=== PATIENT | male | born 1975 | race Caucasian/White ===

== ENCOUNTER 2025-04-18 16:36 | Emergency (ER) | payer BC ==
[~2025-04-18] VITALS: Ht 190.5 cm; Wt 111.4 kg
[2025-04-18 16:48] VITALS: TEMP 98
--- NOTE | 2025-04-18 16:53 | ELECTROCARDIOGRAPH REPORT ---
[facility] Test Date: 2025-04-18 Test Time: 16:39:34 Pat Name: CHERI ATWOOD Department: EMERGENCY ROOM Patient ID: [id number] Room: Gender: M Director Of Corporate Responsibility: : 1975 Requested By: MATHEUS OLIVEIRA Order Number: [id number] Reading MD: Dr. Jose Manuel Scales Measurements Intervals [place] Rate: 67 P: 69 OR: 208 QRS: -53 QRSD: 108 T: 67 QT: 379 QTc: 400 Interpretive Statements Sinus rhythm Borderline prolonged OR interval Consider left atrial enlargement Incomplete RBBB and LAFB RSR' in V1 or V2, right VCD or RVH ST elevation, consider inferior injury Electronically Signed On 04-18-2025 21:39:[address] Jose Manuel Scales Please click the below link to view image of tracing.
[2025-04-18 17:03] LABS: MEAN PLATELET VOLUME 7.9 FL (7.4-10.4); RED CELL DISTRIBUTION WIDTH 13.5 % (11.5-14.5)
--- NOTE | 2025-04-18 17:09 | RADIOLOGY REPORT ---
CHEST RADIOGRAPH Indication: CP Technique: DI CHEST,SINGLE VIEW Comparison: None FINDINGS: The cardiac silhouette is unremarkable. The lungs demonstrate right basilar airspace opacification. The pulmonary vasculature is unremarkable. There is no pleural effusion. There is no pneumothorax. IMPRESSION: Right basilar airspace opacification
--- NOTE | 2025-04-18 17:10 | Physician Documentation ---
History of Present Illness ~ Chief Complaint: Palpitations Stated Complaint: CHEST PAIN Time Seen by MD: 16:54 HPI This 50-year-old male with a history of chronic palpitations presents today with a worsening symptoms. Patient states he has increased shortness of breath pito es any chest pain currently. He states he has a burning sensation when he has palpitations. He reports removing much of the attributing factors to increased palpitations including low intake of caffeine however he does state that he uses pipe tobacco in the evenings. Guarding his palpitations he states that he has a throughout the day and sometimes in rapid sequence. States he is still gets palpitations while exercising which he is able to do. Additionally patient has sleep apnea and uses a CPAP at night He is not from this area and has not established with a finance manager's at this time. He states that he has not take any medications currently Day of Onset: Apr 18, 2025 Medication Reconciliation Allergies: Coded Allergies: No Known Allergies (Unverified , 04/18/25) Review of Systems All Other Systems at this time: Reviewed and Negative ROS As stated above in the HPI, otherwise all systems are reviewed and negative. Physical Exam Vital Signs: Temperature: 98.0, Source: Temporal, Heart Rate: 64, Respiratory Rate: 16, BP: 106/51, Pulse Oximetry: 97, Weight: 111.360 Oxygen Flow Rate: 0 Physical Exam General: Alert, no apparent distress. HEENT: PERRL, EOMI, no injection, moist mucous membranes. Neck: Full range of motion. Respiratory: Lungs clear, no respiratory distress. Chest: No accessory muscle use. Cardiovascular: Regular rate and rhythm, no murmurs. Gastrointestinal: Soft, nontender, nondistended. Bowels sounds present. Extremities: Normal range of motion, no deformity. Neurologic: Oriented x4. Psychiatric: Normal mood and affect. Skin: Normal color, warm and dry. No edema, no ecchymosis. Progress Results/Orders Results/Orders Completed Orders - BRANDON MARTELL NP Acetaminophen 325mg Tablet (Tylenol Tabl (04/18/25 17:40) Vital Signs 04/18/25 04/18/25 16:48 17:13 Temp 98.0 Pulse 64 Resp 16 B/P (MAP) 106/51 Pulse Ox 97 O2 Flow Rate 0 Laboratory Tests Test 04/18/25 16:41 White Blood Count 8.0 Red Blood Count 4.84 Hemoglobin 15.9 Hematocrit 45.2 Mean Corpuscular Volume 93.4 Mean Corpuscular Hemoglobin 32.8 H Mean Corpuscular Hemoglobin Concent 35.1 Red Cell Distribution Width 13.5 Platelet Count 259 Mean Platelet Volume 7.9 Neutrophils (%) (Auto) 55.8 Lymphocytes (%) (Auto) 34.5 Monocytes (%) (Auto) 7.1 Eosinophils (%) (Auto) 1.6 Basophils (%) (Auto) 1.0 Neutrophils # (Auto) 4.5 Lymphocytes # (Auto) 2.8 Monocytes # (Auto) 0.6 Eosinophils # (Auto) 0.1 Basophils # (Auto) 0.1 CBC Comment Sodium Level 142 Potassium Level 4.3 Chloride Level 106 Carbon Dioxide Level 29.1 Anion Gap 7 L Blood Urea Nitrogen 10 Creatinine 0.90 Estimated GFR/1.73 m2 89 BUN/Creatinine Ratio 11.1 Glucose Level 94 Calcium Level 9.1 Troponin I High Sensitivity 5 Pro-B-Type Natriuretic Peptide < 30 Albumin 4.2 Chemistry Comments Medical Decision Making Findings 50-year-old male does not present with any signs of acute cardiac events. His EKG was reassuring as was his laboratory results. Chest x-ray showed no signs of abnormalities. At this time I am going to discharge him for outpatient evaluation. Suspect he has been nine palpitations combined with exacerbating anxiety Departure Disposition: 01 HOME / SELF CARE / HOMELESS Impression: Primary Impression: Palpitations Additional Impression: Anxiety Discharge Instructions: Palpitations, [id number] Additional Instructions: As I discussed with the you take medication as prescribed. I recommend [facility] with or one of the other local finance manager's I think he would benefit from an evaluation for a potential ablation. If you are able to obtain Holter monitor records that may be beneficial during your initial consultation Referrals: NO PRIMARY CARE PROVIDER (PCP) Prescriptions Clonazepam (Klonopin) 0.5 Mg Tablet 1 TAB PO QDAY PRN PRN for anxiety for 30 Days, #30 TAB 0 Refills Prov: BRANDON MARTELL NP 04/18/25 Hydroxyzine Hcl* (Atarax*) 25 Mg Tablet 1 TAB PO Q12H for anxiety for 30 Days, #60 TAB Prov: BRANDON MARTELL NP 04/18/25 Signature Scribe Signature: g Attestation: Scribed for Brandon Martell Np by Brandon Fernandez NP . 04/18/25 17:50 BRANDON MARTELL NP Apr 18, 2025 17:10
[2025-04-18 17:21] LABS: CREATININE 0.90 MG/DL (0.60-1.10); PRO BRAIN NATRIURETIC PEPTIDE < 30 PG/ML (0-125); TOTAL CARBON DIOXIDE 29.1 MMOL/L (24-32); eCRCL 116 ML/MIN; eGFR 89 ML/MIN
[2025-04-18] MEDS ORDERED: CLON-850 PO (17:49)
[2025-04-18] MEDS ORDERED: HYDR-3686 PO (17:49)
[2025-04-18 18:14] VITALS: BP 122/76; PULSE 54; RESP 18; O2SAT 98
== END 2025-04-18 18:24 | disposition home or self-care (01) ==
LOC: ER 16:37
DX: R00.2 Palpitations (principal); F41.9 Anxiety disorder, unspecified; G47.30 Sleep apnea, unspecified; Z72.0 Tobacco use
CPT/HCPCS: 36415; 71045; 80048; 83880; 84484; 85025; 93005; 99285

== ENCOUNTER 2025-05-16 07:38 | Day surgery (SDC) | payer BC ==
[2025-05-16] VITALS (13 sets, daily range): BP systolic 91–108; BP diastolic 47–72; PULSE 51–78; RESP 13–17; O2SAT 95–100
[~2025-05-16] VITALS: Ht 190.5 cm; Wt 113.4 kg
[~2025-05-16 07:38] MED LIST: CLON0.5T4 PO; HYDR-3686 PO
[2025-05-16] MEDS ORDERED: simethicone 40mg/0.6ml oral drops 15ml ONE (08:00)
[2025-05-16] MEDS: midazolam 1 mg/ML 2ml injection ONE (08:37)
[2025-05-16] MEDS: ringers solution, lacted 1,000 ML IV SCH (08:38)
[2025-05-16] MEDS ORDERED: propofol inj 20 ML IV ONE (10:25)
== END 2025-05-16 11:19 | disposition home or self-care (01) ==
LOC: GI LAB 07:38
PROVIDERS: ATTEND Internal Medicine Gastroenterology
DX: Z12.11 Encounter for screening for malignant neoplasm of colon (principal); D12.5 Benign neoplasm of sigmoid colon; K57.30 Diverticulosis of large intestine without perforation or abscess without bleeding; K64.8 Other hemorrhoids; F41.9 Anxiety disorder, unspecified; F17.210 Nicotine dependence, cigarettes, uncomplicated; I49.3 Ventricular premature depolarization; M19.90 Unspecified osteoarthritis, unspecified site; R73.09 Other abnormal glucose; Z86.0100 Personal history of colon polyps, unspecified; Z98.890 Other specified postprocedural states
CPT/HCPCS: 45385; 82948; J2250; J2704; J7120; Z7512; A4615; A4620